=== PATIENT | male | born 1955 | race Caucasian/White ===

== ENCOUNTER 2016-06-22 20:43 | Emergency (ER) | payer BC ==
--- NOTE | 2016-06-22 22:00 | ERNOTE ---
Back Pain ER HPI Presenting Symptoms: injury/pain to back Time Seen by Provider: 06/22/16 21:55 Source: patient, family Exam Limitations: no limitations Immunizations: IMMUNIZATION HX Immunizations Up to Date No History of Influenza Vaccine Yes Hx Pneumococcal Vaccination No Allergies/Adverse Reactions: Allergies Penicillins Allergy (Intermediate, Verified 06/22/16 21:04) Home Medications: HOME MEDICATIONS Glimepiride 2 mg PO BID 05/14/12 [Last Taken 06/25/13] metFORMIN HCL [Glucophage] 500 mg PO BID 08/18/12 [Last Taken 06/25/13] Aspirin [Yovanny Chewable] 81 mg PO DAILY 06/22/16 [Last Taken Unknown] Cholecalciferol [Vitamin D] 5,000 unit PO DAILY 06/22/16 [Last Taken Unknown] Escitalopram Oxalate [Lexapro] 10 mg PO HS 06/22/16 [Last Taken Unknown] Lisinopril [Zestril] 10 mg PO HS 06/22/16 [Last Taken Unknown] Cyclobenzaprine HCl [Flexeril] 10 mg PO TID #30 tablet 06/23/16 [Last Taken Unknown] HYDROcodone/ACETAMINOPHEN [Elmo 5-325] 1 each PO Q4H PRN #20 tablet 06/23/16 [ Last Taken Unknown] Narrative: Patient comes to emergency room with complaints of having the mid back pain radiating anteriorly to both sides of the lower thorax below the ribs. Patient has in a long car ride for 14 hours driving from [place]. Denies having any other injury hurts to take deep breath hurts to move he woke up with this severe pain yesterday. He has taken some Tylenol. He did see a chiropractor today who did a manipulation on his back but it has not helped him much. He's had some back pain in the past but never this bad Last year he had a myocardial infarction. He is an ex-smoker. Timing: Reports: constant, getting worse Quality/Severity: Reports: moderate Location of pain: Reports: mid back Activities at Onset: Reports: activity Recent Injury?: Reports: possibly Possible Precipitating Factor: Reports: lifting, turning/bending. Denies: fall/ near fall, trauma Modifying Factors - (Worsens): Reports: movement to right, movement to left, cough/deep breaths Associated Symptoms: Denies: fever/chills, sweating Review of Systems - Review of Systems Constitutional: Present: no symptoms reported ENT: Present: no symptoms reported Respiratory: Present: no symptoms reported Cardiology: Absent: chest pain, palpitations, syncope Gastrointestinal/Abdominal: Present: no symptoms reported Genitourinary: Present: no symptoms reported Musculoskeletal: Present: back pain Skin: Present: no symptoms reported Neurological: Present: no symptoms reported All Other Systems: All systems neg except as marked - Patient's Past Medical History Patient History - Medical: Diabetes Type 2, Depression, Other Patient History - Cardiac/Respiratory: Hypertension, Hyperlipidemia, Myocardial Infarction, CPAP/BiPAP Home Use, Sleep Apnea Patient History - Cancer: No Hx of Cancer Patient History - Surgical Procedures: Appendectomy, Cholecystectomy, Colonoscopy, Total Knee Replacement, Other, Hernia Repair Patient History - Other: None - Family History Father Family History - Medical: Diabetes Type 2 Family History - Cardiac/Respiratory: Myocardial Infarction, Other Mother Family History - Medical: Alzheimer's Disease, Other Family History - Cardiac/Respiratory: Pneumonia - Social History Living Situations: home Abuse History: No History of abuse Psych History: Hx of Anxiety, Hx of Depression Smoking Status: Former smoker Alcohol Use: none Drug Use: none - Immunizations Immunizations Up to Date: No Hx Pneumococcal Vaccination: No History of Influenza Vaccine: Yes Physical Exam - Physical Exam General Appearance: Present: wd/wn, alert, moderate distress Eye Exam: Normal inspection: bilateral Ears, Nose, Throat: Present: normal ENT inspection Neck: Present: normal inspection Respiratory: Present: no respiratory distress, normal breath sounds, no accessory muscle use, chest nontender, lungs clear Cardiovascular/Chest: Present: regular rate, rhythm Gastrointestinal/Abdominal: Present: normal bowel sounds Back Exam: Present: normal inspection, vertebral tenderness, decreased range of motion, muscle spasm Extremity Exam: Present: normal inspection, normal range of motion, no edema Neurological Exam: Present: alert, oriented, normal mood/affect, no motor/ sensory deficits, mineral surveyor II-XII nml as tested, normal cerebellar test Skin Exam: Present: normal color, warm/dry Lymphatic Exam: Present: no adenopathy ED Progress - Results and Orders Patient's Lab Results:: I have reviewed the patient's lab results. - Vital Signs Patient's Vital Signs:: I have reviewed the patient's vital signs. Vital Signs: Vital Signs 06/22/16 20:58 Temperature 36.8 C Pulse Rate 95 Respiratory 16 Rate Blood Pressure 163/101 O2 Sat by Pulse 97 Oximetry - X-Ray X-Ray #1 X-Ray: lumbosacral - negative acute changes noted. Radiologist report pending. Patient aware - CT/Ultrasound CT/Ultrasound Narrative: CT Chest with contrast negative acute changes, Discussed with Radiologist over the phone. Patient is aware of the results. - Progress/Reassessment Chief Complaint: Back Pain Progress:: Improved Departure Clinical Impression: Back pain Qualifiers: Back pain location: back pain in unspecified location Chronicity: acute Back pain laterality: midline Qualified Code(s): M54.9 - Dorsalgia, unspecified - Departure Disposition: Home self-care Condition: Stable Instructions: Back Pain, Adult Additional Instructions: Ice, rest, Use norco 5 mg as needed for pain every 4 to 6 hours. Use flexeril 10 mg three times a day. Follow up with your doctor in 2 to 3 dyas, If worse in anyway please return to ER. Use stool softener since hydrocodone may cause constipation Referrals: Meli Perales MD [Primary Care Provider] - Prescriptions: Cyclobenzaprine HCl [Flexeril] 10 mg PO TID #30 tablet HYDROcodone/ACETAMINOPHEN [Elmo 5-325] 1 each PO Q4H PRN #20 tablet PRN Reason: Pain
[2016-06-22] MEDS ORDERED: MORPHINE SULFATE 4 MG/ML SYRG IV ONE (22:04)
[2016-06-22 22:17] LABS: Hematocrit 46.5 % (42.0-52.0); Hemoglobin 15.4 gm/dL (13.5-18.0); Mean Cell Volume 80.4 fl (78-100); Mean Corpuscular Hemoglobin 26.6 pg (27-31); Mean Corpuscular Hgb Conc 33.1 g/dl (32-36); Mean Platelet Volume 9.7 fl (6.0-9.5); Neutrophil # 3.8 K/mm3 (1.3-6.0); Neutrophil % 48.4 % (42-75.0); Platelet Count 273 K/mm3 (150-450); Red Blood Count 5.78 M/mm3 (4.7-6.0); Red Cell Distribution Width 14.3 % (11.5-14.0); White Blood Count 7.8 K/mm3 (4.0-10.5)
[2016-06-22] MEDS ORDERED: MORPHINE SULFATE 4 MG/ML SYRG ONE (22:20)
--- OUTSIDE RECORDS SUMMARY | 2016-06-22 22:30 | XMS REPORT | Continuity of Care Document ---
:1955 Author Organization [facility] [place] [address] Care Team Providers Name Role Phone Fer Portillo Александр Primary Care Provider [phone] Source Comments This disclosure is being made pursuant to the Message[employer] program and maynot contain all information available regarding this patient.[facility] Active Allergies and Adverse Reactions Allergen Noted Date Severity Reactions Comments Penicillins 08/08/2013 High Hives Current Medications Be aware that medications may not be up to date as of this document. Alwaysverify current medications with the patient. Prescription Sig. Disp. Refills Start Date End Date Status methylPREDNISolone follow package 21 tablet 0 08/08/2013 Active (MEDROL DOSEPACK) 4 MG directions tablet metFORMIN (GLUCOPHAGE) Take 500 mg by Active 500 MG tablet mouth 2 (two) times daily with meals. glimepiride (AMARYL) 2 Take 2 mg by Active MG tablet mouth every morning before breakfast. aspirin 81 MG EC tablet Take 81 mg by Active mouth nightly. multivitamins with Take 1 each by Active minerals (MULTIVITAL-M) mouth daily. TABS Active Problems Not on file Social History Tobacco Use Types Packs/Day Years Used Date Former Smoker Smokeless Tobacco: Former User Alcohol Use Drinks/Week oz/Week Comments Yes very little Last Filed Vital Signs Vital Sign Reading Time Taken Blood Pressure 173/90 08/08/2013 8:38 PM CDT Pulse 95 08/08/2013 8:38 PM CDT Temperature 36.4 C (97.5 F) 08/08/2013 8:38 PM CDT Respiratory Rate 18 08/08/2013 8:38 PM CDT Height - - Weight - - Body Mass Index - - Oxygen Saturation 97% 08/08/2013 8:38 PM CDT Plan of Care Health Maintenance Due Date Last Done Comments Lab-Lipids 1955 LAB-HgA1C 1962 Eye (Ophthalmology) Exam 06/15/1967 Foot Exam 06/15/1967 Tetanus/Pertussis (1 - Tdap) 1976 Colonoscopy 06/15/2007 Well Adult Visit 06/15/2007 Influenza Immunization (#1) 2015 Results from Last 3 Months Not on file
--- OUTSIDE RECORDS SUMMARY | 2016-06-22 22:34 | XMS REPORT | Continuity of Care Document ---
:1955 Author Organization [facility] ([facility]) Address [address] [place] [address] Phone [phone] Care Team Providers Name Role Phone Provider, No-Primary Care Primary Care Provider Unavailable Source Comments This disclosure is being made pursuant to the Care Everywhere program, applicable federal and state laws, and may not contain all informaitonavailable regarding this patient.[facility] ([facility]) Active Allergies and Adverse Reactions Not on File Current Medications Not on file Active Problems Not on file Social History Tobacco Use Types Packs/Day Years Used Date Never Assessed Plan of Care Health Maintenance Due Date Last Done Comments HCV Screening 1955 Hepatitis B Vaccine (1 of 3 - Primary Series) 1955 Tdap Vaccine 1968 Lipid Disorder Screening 06/15/1975 MMR Vaccine 06/15/1975 Td Vaccine 06/15/1975 Colonoscopy 2007 Prostate Cancer Screening 06/15/2007 Influenza Vaccine: Seasonal (#1) 11/03/2015 Results from Last 3 Months Not on file
[2016-06-22 22:38] LABS: ALT 60 U/L (19-67); AST 33 U/L (0-48); Albumin * 3.9 gm/dl (3.4-5.0); Alkaline Phosphatase * 75 U/L (50-170); Amylase * 47 U/L (25-115); Anion Gap 12.1 mmol/L (6.8-13.8); BNP * 104 pg/mL (5-175); BUN/Creatinine Ratio 13.7 (9.0-21.6); Bilirubin, Total 0.6 mg/dL (0.0-1.1); Blood Urea Nitrogen 14 mg/dL (6-23); CK Total * 154 U/L (0-259); CRP 0.8 mg/dL (0.0-0.9); Ca. Corrected For Albumin 8.6 mg/dL (8.4-10.2); Calcium * 8.8 mg/dL (7.9-10.9); Carbon Dioxide 27.6 mmol/L (24-32.6); Chloride 104 mmol/L (97-106); Glucose * 238 mg/dL (70-110); Lipase 121 U/L (73-393); Potassium 3.7 mmol/L (3.4-4.6); Sodium 140 mmol/L (132-142)
[2016-06-22] MEDS ORDERED: 0.5 NORMAL SALINE 1,000 ML IV PRN (22:38)
[2016-06-22 22:39] LABS: Troponin I Less than 0.017 ng/ml (0.00-0.10)
[2016-06-22 23:13] LABS: Urine Bilirubin Negative (NEGATIVE); Urine Ketone Negative (NEGATIVE); Urine Nitrite Negative (NEGATIVE); Urine Protein 15 mg/dL (NEGATIVE); Urine Specific Gravity >=1.030 SP.GR. (1.005-1.030); Urine Urobilinogen Normal (NORMAL); Urine pH 5.5 pH (5.0-7.0)
[2016-06-22 23:21] LABS: Urine Appearance Clear; Urine Blood 10 /ul (NEGATIVE); Urine Color Yellow
[2016-06-22 23:22] LABS: Urine Bacteria None Seen; Urine RBC None Seen /hpf (0-5); Urine WBC None Seen /hpf (0-5)
[2016-06-23] MEDS ORDERED: HYDROcodone/ACETAMINOPHEN 1 EACH TABLET PO ONE (00:19)
[2016-06-23] MEDS ORDERED: CYCLOBENZAPRINE HCL 10 MG TABLET PO ONE (00:20)
[2016-06-23] MEDS ORDERED: HYDROcodone/ACETAMINOPHEN 1 EACH TABLET ONE (00:28)
[2016-06-23] MEDS ORDERED: CYCLOBENZAPRINE HCL 10 MG TABLET ONE (00:28)
[2016-06-23 01:30] VITALS: BP 162/108
== END 2016-06-23 01:28 | disposition home or self-care (01) ==
LOC: ER 20:43
DX: M54.9 Dorsalgia, unspecified (principal); E11.9 Type 2 diabetes mellitus without complications; F32.9 Major depressive disorder, single episode, unspecified; I10 Essential (primary) hypertension; Z87.891 Personal history of nicotine dependence

== ENCOUNTER 2016-07-08 23:06 | Emergency (ER) | payer BC ==
[2016-07-08] MEDS ORDERED: KETOROLAC TROMETHAMINE 30 MG/ML VIAL IV ONE (23:19)
[2016-07-08] MEDS ORDERED: ONDANSETRON HCL/PF 2 MG/ML VIAL IV ONE (23:19)
[2016-07-08] MEDS ORDERED: HYDROmorphone HCL 1 MG/ML DISP.SYRIN IV ONE ×2 (23:19→23:52)
[2016-07-08] MEDS ORDERED: HYDROmorphone HCL 1 MG/ML DISP.SYRIN ONE ×2 (23:22→23:54)
[2016-07-08] MEDS ORDERED: ONDANSETRON HCL/PF 2 MG/ML VIAL ONE (23:22)
[2016-07-08] MEDS ORDERED: KETOROLAC TROMETHAMINE 30 MG/ML VIAL ONE (23:22)
--- NOTE | 2016-07-08 23:25 | ERNOTE ---
Back Pain ER HPI Time Seen by Provider: 07/08/16 23:13 Source: patient Immunizations: IMMUNIZATION HX Immunizations Up to Date No History of Influenza Vaccine Yes Hx Pneumococcal Vaccination No Allergies/Adverse Reactions: Allergies Penicillins Allergy (Intermediate, Verified 06/22/16 21:04) Home Medications: HOME MEDICATIONS Glimepiride 2 mg PO BID 05/14/12 [Last Taken 06/25/13] metFORMIN HCL [Glucophage] 500 mg PO BID 08/18/12 [Last Taken 06/25/13] Aspirin [Yovanny Chewable] 81 mg PO DAILY 06/22/16 [Last Taken Unknown] Cholecalciferol [Vitamin D] 5,000 unit PO DAILY 06/22/16 [Last Taken Unknown] Escitalopram Oxalate [Lexapro] 10 mg PO HS 06/22/16 [Last Taken Unknown] Lisinopril [Zestril] 10 mg PO HS 06/22/16 [Last Taken Unknown] Cyclobenzaprine HCl [Flexeril] 10 mg PO TID PRN #30 tab 07/08/16 [Last Taken Unknown] Narrative: here for sudden muscle spasm of his right thoracic and lumbar region. It began suddenly tonight as pt was straightening up. no urinary symptoms. He has had a similar episode two weeks ago and was on the mend till he bent over again tonight and his back spasmed back up Review of Systems - Review of Systems Constitutional: Present: no symptoms reported EYE: Present: no symptoms reported ENT: Present: no symptoms reported Respiratory: Present: no symptoms reported Cardiology: Present: no symptoms reported Gastrointestinal/Abdominal: Present: no symptoms reported Genitourinary: Present: See HPI - Patient's Past Medical History Patient History - Medical: Diabetes Type 2, Depression, Other Patient History - Cardiac/Respiratory: Hypertension, Hyperlipidemia, Myocardial Infarction, CPAP/BiPAP Home Use, Sleep Apnea Patient History - Cancer: No Hx of Cancer Patient History - Surgical Procedures: Appendectomy, Cholecystectomy, Colonoscopy, Other, Hernia Repair Patient History - Other: None - Family History Father Family History - Medical: Diabetes Type 2 Family History - Cardiac/Respiratory: Myocardial Infarction, Other Mother Family History - Medical: Alzheimer's Disease, Other Family History - Cardiac/Respiratory: Pneumonia - Social History Living Situations: spouse Abuse History: No History of abuse Psych History: Hx of Anxiety, Hx of Depression Smoking Status: Former smoker Alcohol Use: none Drug Use: none - Immunizations Immunizations Up to Date: No Hx Pneumococcal Vaccination: No History of Influenza Vaccine: Yes Physical Exam - Physical Exam General Appearance: Present: wd/wn, alert, no apparent distress Ears, Nose, Throat: Present: normal ENT inspection Respiratory: Present: no respiratory distress, normal breath sounds, no accessory muscle use, chest nontender, lungs clear Cardiovascular/Chest: Present: regular rate, rhythm, no murmur, normal peripheral pulses Gastrointestinal/Abdominal: Present: normal bowel sounds, nontender Back Exam: Present: other - pt has acute spasm of the right paravertebral muscle group in the thoracic region of his spine. it is obvious on palpation. There is no CVA tenderness. he is tight in the corresponding region. No superficial lesions are noted. ED Progress - Vital Signs Patient's Vital Signs:: I have reviewed the patient's vital signs. Vital Signs: Vital Signs 07/08/16 23:10 Temperature 36.9 C Pulse Rate 102 H Respiratory 18 Rate Blood Pressure 192/117 O2 Sat by Pulse 98 Oximetry - Progress/Reassessment Chief Complaint: Back Pain Plan - Plan Plan: pt has clear muscle spasm and will be treated accordingly Departure Clinical Impression: Muscle spasm - Departure Disposition: Home self-care Condition: Fair Instructions: Muscle Cramps and Spasms, [id number] Prescriptions: Cyclobenzaprine HCl [Flexeril] 10 mg PO TID PRN #30 tab PRN Reason: MUSCLE SPASMS
[2016-07-09] MEDS ORDERED: LORazepam 1 MG TABLET PO ONE (00:27)
--- OUTSIDE RECORDS SUMMARY | 2016-07-09 00:32 | XMS REPORT | Continuity of Care Document ---
:1955 Author Organization [facility] [place] [address] Care Team Providers Name Role Phone Fer Portillo Primary Care Provider [phone] Source Comments This disclosure is being made pursuant to the [employer] program and maynot contain all information available regarding this patient.[facility] Active Allergies and Adverse Reactions Allergen Noted [...] daily. TABS Active Problems Not on file Most Recent Encounters Date Type Specialty Providers Description 07/01/2016 Data Import Social History Tobacco Use Types Packs/Day Years [...]
--- OUTSIDE RECORDS SUMMARY | 2016-07-09 00:32 | XMS REPORT | Continuity of Care Document ---
:1955 Author Organization [facility] ([facility]) Address [address] [place] [address] Phone [phone] Care Team Providers Name Role Phone Provider, No-Primary Care Primary Care Provider Unavailable Source Comments This disclosure is being made pursuant to the Care Everywhere program, applicable federal and state laws, and may not contain all informaitonavailable regarding this patient.[facility] ([facility]) Active Allergies and Adverse Reactions Not [...]
[2016-07-09] MEDS ORDERED: LORazepam 1 MG TABLET ONE (00:34)
[2016-07-09 01:13] VITALS: BP 168/98
== END 2016-07-09 00:43 | disposition home or self-care (01) ==
LOC: ER 23:06
DX: M62.830 Muscle spasm of back (principal); Z87.891 Personal history of nicotine dependence; E11.9 Type 2 diabetes mellitus without complications; F41.9 Anxiety disorder, unspecified; I10 Essential (primary) hypertension

== ENCOUNTER 2016-12-27 14:07 | Emergency (ER) | payer BC ==
--- NOTE | 2016-12-27 14:51 | ERNOTE ---
Upper Extremity HPI - Narrative Date of Service: 12/27/16 - General Extremities Pain Location: thumb: left Time Seen by Provider: 12/27/16 14:45 Source: patient Exam Limitations: no limitations - Immun/Allergies/Home Medications Immunizations: IMMUNIZATION HX Immunizations Up to Date No History of Influenza Vaccine No Hx Pneumococcal Vaccination No Allergies/Adverse Reactions: Allergies Allergy/AdvReac Type Severity Reaction Status Date / Time Penicillins Allergy Intermediate Verified 06/22/16 21:04 Home Medications: HOME MEDICATIONS Glimepiride 2 mg PO BID 05/14/12 [Last Taken 06/25/13] metFORMIN HCL [Glucophage] 500 mg PO BID 08/18/12 [Last Taken 06/25/13] Aspirin [Yovanny Chewable] 81 mg PO DAILY 06/22/16 [Last Taken Unknown] Cholecalciferol [Vitamin D] 5,000 unit PO DAILY 06/22/16 [Last Taken Unknown] Escitalopram Oxalate [Lexapro] 10 mg PO HS 06/22/16 [Last Taken Unknown] Lisinopril [Zestril] 10 mg PO HS 06/22/16 [Last Taken Unknown] Cyclobenzaprine HCl [Flexeril] 10 mg PO TID PRN #30 tab 07/08/16 [Last Taken Unknown] Ciprofloxacin HCl [Cipro] 500 mg PO BID 14 Days #28 tablet 12/27/16 [Last Taken Unknown] - Pain Score Pain Score #1 Pain Score: 4 - History of Present Illness Narrative: 61yo, M, presents to ER for evaluation of L. thumb nail injury. He reports 3 weeks ago he caught his L. thumb nail on the door frame which pulled his nail up 90 degrees. He notes over the past week he has noted increased tenderness, green discoloration of the nail and foul odor under the nail. Notes his thumb is tender and more swollen than usual. Occurred: other - 3 weeks ago Location of Incident: other - camping Loss of Consciousness: Reports: no loss of consciousness Modifying Factors - (Improves): Reports: rest Modifying Factors - (Worsens): Reports: movement - of thumb, other - palpation of nail Associated Symptoms: Denies: loss of feeling Review of Systems - Review of Systems Constitutional: Absent: fever, malaise Respiratory: Absent: shortness of breath, cough Gastrointestinal/Abdominal: Absent: nausea, vomiting Musculoskeletal: Present: other Skin: Present: change in hair/nails - green discoloration of L. thumb nail and tenderness, other - mild peeling to distal thumb. Absent: rash - Patient's Past Medical History Patient History - Medical: Anxiety, Diabetes Type 2, Depression, Other Patient History - Cardiac/Respiratory: Hypertension, Hyperlipidemia, Myocardial Infarction, CPAP/BiPAP Home Use, Sleep Apnea Patient History - Cancer: No Hx of Cancer Patient History - Surgical Procedures: Appendectomy, Cholecystectomy, Colonoscopy, Other, Hernia Repair Patient History - Other: None - Family History Father Family History - Medical: Diabetes Type 2 Family History - Cardiac/Respiratory: Myocardial Infarction, Other Mother Family History - Medical: Alzheimer's Disease, Other Family History - Cardiac/Respiratory: Pneumonia - Social History Living Situations: home Abuse History: No History of abuse Psych History: Hx of Anxiety, Hx of Depression Smoking Status: Never smoker Have you smoked in the past 12 months: No Do you dip or chew tobacco: No Alcohol Use: rarely Drug Use: none - Immunizations Immunizations Up to Date: No Hx Pneumococcal Vaccination: No History of Influenza Vaccine: No Physical Exam - Physical Exam General Appearance: Present: wd/wn, alert, no apparent distress Respiratory: Present: no respiratory distress, normal breath sounds, no accessory muscle use. Absent: rales, rhonchi, wheezing Cardiovascular/Chest: Present: regular rate, rhythm, no murmur Extremity Exam: Present: other - mild tenderness at nail bed Neurological Exam: Present: alert, oriented Skin Exam: Present: normal color, warm/dry, other - L. thumb nail loose and discolored green, faint skin peeling of distal L. thumb ED Progress - Vital Signs Patient's Vital Signs:: I have reviewed the patient's vital signs. Vital Signs: Vital Signs 12/27/16 14:15 Temperature 37.2 C Pulse Rate 93 Respiratory 17 Rate Blood Pressure 136/82 O2 Sat by Pulse 96 Oximetry - Progress/Reassessment Chief Complaint: Upper Extremity Injury/Problem Procedures Date and Time: 12/27/16 1505- Cut away loose nail with scissors and hemostats, left 0.25cm of nail remaining. Pt tolerated well with minimal discomfort. Departure Clinical Impression: Pseudomonas aeruginosa infection, Green nails - Departure Disposition: Home self-care Condition: Good Instructions: Nail Bed Injury, Obon-no-Iuws Additional Instructions: Keep nail clean and dry Wash area twice daily with antibiotic soap, then pat dry Schedule follow up with your doctor in 2 week for recheck and medication adjustments if needed. Referrals: Meli Perales MD [Primary Care Provider] - Prescriptions: Ciprofloxacin HCl [Cipro] 500 mg PO BID 14 Days #28 tablet
[2016-12-27 15:27] VITALS: BP 134/82
== END 2016-12-27 15:25 | disposition home or self-care (01) ==
LOC: ER 14:07
PROC: 0HDQXZZ Extraction of Finger Nail, External Approach (ICD-10-PCS; principal; 2016-12-27)
DX: L03.012 Cellulitis of left finger (principal); B96.5 Pseudomonas (aeruginosa) (mallei) (pseudomallei) as the cause of diseases classified elsewhere

== ENCOUNTER 2018-05-12 11:30 | Observation (INO) ==
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
[2018-05-12] MEDS ORDERED: MORPHINE SULFATE 4 MG/ML SYRG IV ONE ×2 (12:33→13:12)
[2018-05-12] MEDS ORDERED: ONDANSETRON HCL/PF 2 MG/ML VIAL IV ONE (12:33)
[2018-05-12] MEDS ORDERED: ACETAMINOPHEN 500 MG TABLET PO PRN (13:51)
[2018-05-12] MEDS ORDERED: ONDANSETRON HCL/PF 2 MG/ML VIAL IV PRN (13:51)
[2018-05-12] MEDS ORDERED: NORMAL SALINE 1,000 ML IV ONE (13:54)
[2018-05-12] MEDS: oxyCODONE HCL/ACETAMINOPHEN 1 TAB TABLET PO PRN (15:04)
--- NOTE | 2018-05-12 15:06 | HP ---
Chief Complaint - Chief Complaint Date of Service: 05/12/18 Time of Service: 14:44 Chief Complaint: Closed head injury after 2 falls. Complains of headache. History of Present Illness: Carlitos Griggs is a 62-year-old male who was in his usual state of health. He was outside and fell on the ice and struck his head. He was unconscious for an unknown period of time that was less than 30 minutes. When he awakened he had to push himself up and while trying to do so fell again. He then got to a tree and was able to push himself up and there was able to get into the house. He notified his he needed some help she called the am bulance and he was brought to the hospital for evaluation. CT of his head shows no evidence of bleeding. He has severe headache and nausea. Having some problems with short-term recall. He is fully oriented however. 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 Medical History (Last Updated 05/12/18 @ 12:12 by Yamileth Cisneros MD) CAD (coronary artery disease) Diabetes Migraine Obesity history of abdominal surgery Surgical History: Surgical History (Last Updated 05/12/18 @ 12:12 by Yamileth Cisneros MD) Hx of cholecystectomy Social History: Preferred Language Danish Do you have any christianity or No cultural preference? Smoking Status Former smoker Have you smoked in the past 12 No months Do you dip or chew tobacco No Abuse History No History of abuse Psych History Hx of Anxiety,Hx of Depression Alcohol Use rarely Drug Use none No Social History Section defined Review Of Systems (GEN) - Review of Systems EENTM: Present: Other - Headache Respiratory: Present: No Symptoms Reported Cardiac: Present: No Symptoms Reported Abdominal: Present: No Symptoms Reported Genitourinary: Present: No Symptoms Reported Musculoskeletal: Present: Other - Shoulder soft tissue pain Neurological: Present: No Symptoms Reported, Headache, Anxiety, Depressed, Weakness Skin: Present: No Symptoms Reported Endocrine: Present: Increased Thirst - And increased urination Immunizations: IMMUNIZATION HX Immunizations Up to Date Yes History of Influenza Vaccine Yes Hx Pneumococcal Vaccination More Information Required Allergies/Adverse Reactions: Allergies Allergy/AdvReac Type Severity Reaction Status Date / Time Penicillins Allergy Intermediate Verified 05/12/18 11:38 Home Medications: HOME MEDICATIONS metFORMIN HCL [Glucophage] 500 mg PO BID 08/18/12 [Last Taken 06/25/13] Aspirin [Yovanny Chewable] 81 mg PO DAILY 06/22/16 [Last Taken Unknown] Escitalopram Oxalate [Lexapro] 10 mg PO HS 06/22/16 [Last Taken Unknown] Lisinopril [Zestril] 10 mg PO HS 06/22/16 [Last Taken Unknown] Multivitamin [Multivitamins] 1 each PO DAILY 03/24/17 [Last Taken Unknown] Temazepam [Restoril] 7.5 mg PO HS 05/12/18 [Last Taken Unknown] Exam - Exam Vital Signs: Vital Signs - Last Taken Temp 36.6 C 05/12/18 13:51 Pulse 79 05/12/18 13:51 Resp 16 05/12/18 13:51 BP 142/88 05/12/18 13:51 Pulse Ox 97 05/12/18 13:51 Constitutional: Present: Alert, Oriented x3, Cooperative, Well developed, Well nourished, Obese ENT Exam: Present: normal ENT inspection, other - Contused scalp Eye Exam: bilateral eye: normal inspection, PERRL, EOMI Neck: Present: non-tender, full range of motion, supple, normal inspection, trachea midline Back Exam: Present: normal inspection, no CVA tenderness, no vertebral tenderness Breasts: Present: Nontender Respiratory: Present: chest non-tender, lungs clear, normal breath sounds, no respiratory distress, no accessory muscle use Cardiovascular/Chest: Present: normal peripheral pulses, regular rate, rhythm, no chest tenderness, no edema, no gallop, no JVD, no murmur, no rub Peripheral Pulses: carotid (R): 2+, carotid (L): 2+, radial (R): 2+, radial (L): 2+ Abdomen: Present: Normal bowel sounds, soft, nontender, nondistended, no rebound tenderness, no hepatospenomegaly, no masses, obese /Rectal: Present: Exam deferred Extremity: Present: normal range of motion, non-tender, normal inspection, no pedal edema, no calf tenderness, normal capillary refill. 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 Absent: motor weakness, depressed affect, disoriented x 3 Appearance: Present: appropriate appearance, appropriate insight, neat, no memory impairment, denies illness Eye contact: Present: cooperative, good eye contact, normal speech Thoughts: Present: normal thought pattern, no apparent hallucination Assessment/Plan - Narrative Narrative: Carlitos is admitted to an observation stay for serial neurological testing and monitoring of his blood sugars. I anticipate that he will be improved tomorrow and he'll be able to be discharged 10. He has long-standing type 2 diabetes. He'll be placed on a low simple carbohydrate and low sodium diet. I'll treat his nausea with ondansetron as needed. He may have Tylenol for his headache. - Assessment/Plan (1) Traumatic brain injury Problem: Acute Qualifiers: Encounter type: initial encounter Loss of consciousness presence/duration: with LOC of 30 min or less Qualified Code(s): S06.9X1A - Unspecified intracranial injury with loss of consciousness of 30 minutes or less, initial encounter (2) Diabetes Problem: Chronic Qualifiers: Diabetes mellitus type: type 2 Diabetes mellitus skilled nursing insulin use: without insurance compliance analyst use Diabetes mellitus complication status: without complication Qualified Code(s): E11.9 - Type 2 diabetes mellitus without complications (3) Migraine Problem: Chronic Qualifiers: Migraine type: with aura Status migrainosus presence: without status migrainosus Intractability: not intractable Qualified Code(s): G43.109 - Migraine with aura, not intractable, without status migrainosus (4) Obesity (BMI 30-39.9) Problem: Chronic
[2018-05-12] MEDS ORDERED: metFORMIN HCL 500 MG TABLET PO SCH (17:00)
[2018-05-12] MEDS: HYDROmorphone HCL 1 MG/ML DISP.SYRIN IV PRN (19:34)
[2018-05-12] MEDS: metFORMIN HCL 500 MG TABLET PO SCH (20:54)
[2018-05-12] MEDS ORDERED: TEMAZEPAM 7.5 MG PO SCH (21:00)
[2018-05-12] MEDS ORDERED: LISINOPRIL 10 MG TABLET PO SCH (21:00)
[2018-05-12] MEDS ORDERED: ESCITALOPRAM OXALATE 10 MG TAB PO SCH (21:00)
[2018-05-13] MEDS: HYDROmorphone HCL 1 MG/ML DISP.SYRIN IV PRN ×2 (00:47→06:43)
[2018-05-13] MEDS ORDERED: MULTIVITAMINS 1 CAP CAPSULE PO SCH (09:00)
[2018-05-13] MEDS ORDERED: ASPIRIN 81 MG TAB.CHEW PO SCH (09:00)
[2018-05-13] MEDS: metFORMIN HCL 500 MG TABLET PO SCH (09:05)
[2018-05-13] MEDS: oxyCODONE HCL/ACETAMINOPHEN 1 TAB TABLET PO PRN ×2 (09:05→13:15)
--- NOTE | 2018-05-13 09:17 | DS ---
(1) Traumatic brain injury Problem: Acute Qualifiers: Encounter type: initial encounter Loss of consciousness presence/duration: with LOC of 30 min or less Qualified Code(s): S06.9X1A - Unspecified intracranial injury with loss of consciousness of 30 minutes or less, initial encounter (2) Vertigo due to brain injury Problem: Acute (3) Diabetes Problem: Chronic Qualifiers: Diabetes mellitus type: type 2 Diabetes mellitus rodent exterminator insulin use: without fci use Diabetes mellitus complication status: without complication Qualified Code(s): E11.9 - Type 2 diabetes mellitus without complications (4) Migraine Problem: Chronic Qualifiers: Migraine type: with aura Status migrainosus presence: without status migrainosus Intractability: not intractable Qualified Code(s): G43.109 - Migraine with aura, not intractable, without status migrainosus (5) Obesity (BMI 30-39.9) Problem: Chronic Description of Stay: Carlitos Griggs is a 62 yo. wh. male who fell at home on the ice and struck his head. He was unconcious for about 30 min. He awoke and tried to get up and fell again. He was able to get to the house where his summoned for help. He was brought to the emergency room and evaluated. CT of the head did not show any bleeding but he certainly had a traumatic brain injury with closed head injury and by definition concussion. Continues to have nausea and to be very dizzy with high or head movement. Yesterday he was not able to ambulate but this morning he has walked some by holding onto structures. He is able to walk from his bed to the bathroom and back. He believes he can go home and manage there. He will need some pain medication. I'll offer meclizine for his vertigo but is probably part of his TBI and will have to wear off. He'll resume his usual diet and diabetes management at home. Procedures Performed: none Discharge Location: Home Disposition: Home self-care Condition: Stable Face to Face Encounter completed per CMS Guidelines: Yes - For a walker or a cane Discharge Activity: Activity as tolerated Discharge Diet: Consistent carbs, Low salt Additional Patient Instructions (free text): See me in the office in about 10 days Prescriptions (Any new or edited meds): Ondansetron [Zofran Odt] 8 mg PO Q6H #30 tab.rapdis oxyCODONE HCL/ACETAMINOPHEN [Percocet 5 MG/325 MG] 1 tab PO Q4H PRN #40 tablet PRN Reason: Moderate Pain (Pain Scale 4-6) Complete Home Medications List: Complete Home Medication List: metFORMIN HCL [Glucophage] 1,000 mg PO BID 08/18/12 Aspirin [Yovanny Chewable Aspirin] 81 mg PO HS 06/22/16 Lisinopril [Zestril] 10 mg PO HS 06/22/16 Atorvastatin Calcium 40 mg PO HS 05/12/18 Clindamycin HCl [Cleocin HCl] 300 mg PO QID 05/12/18 FLUoxetine HCL [Fluoxetine HCl] 20 mg PO DAILY 05/12/18 Insulin Glargine,Hum.rec.anlog [Lantus] 44 unit SQ HS 05/12/18 traZODone HCL [Trazodone HCl] 50 mg PO HS PRN 05/12/18 Acetaminophen [Tylenol] 1,000 mg PO Q6H PRN tab 05/13/18 Escitalopram Oxalate [Lexapro] 10 mg PO HS tab 05/13/18 Multivitamins [Multivitamin Jayy] 1 cap PO DAILY cap 05/13/18 Ondansetron [Zofran Odt] 8 mg PO Q6H #30 tab.rapdis 05/13/18 oxyCODONE HCL/ACETAMINOPHEN [Percocet 5 MG/325 MG] 1 tab PO Q4H PRN #40 tab 05/13/18
[2018-05-13 13:02] VITALS: BP 114/69
[2018-05-13] MEDS ORDERED: TEMAZEPAM 15 MG CAPSULE PO SCH (21:00)
== END 2018-05-13 13:30 | disposition home or self-care (01) ==
LOC: ER 11:30 → MS 11:30
PROVIDERS: ADMIT Family Medicine; ATTEND Family Medicine
CPT/HCPCS: 70450; 72125; 73030; 94660; 96361; 96374; 96375; 99285; G0378; J2405